=== PATIENT | female | born 1985 | race Two or more races ===

== ENCOUNTER 2024-10-04 22:41 | Emergency (ER) | payer MEDICAID, SELFPAY ==
[2024-10-04] VITALS (40 sets, daily range): BP systolic 108–125; BP diastolic 61–81; PULSE 89–111; RESP 18–98; TEMP 36.8; O2SAT 94–99; BMI 36.9; BMI 29.2
--- NOTE | 2024-10-04 20:17 | XR_ITS ---
Examination: Complete OB ultrasound greater than 14 weeks Date and time of exam: October 04, 2024 2058 hours INDICATIONS: Patient fell today with pelvic pain Findings: Viable intrauterine single fetus with single amniotic sac presentation cephalic Placenta posterior grade 2 no abruption eccentric umbilical cord insertion 3 vessel seen Amniotic fluid index adequate spine maternal left Cervix 3.4 cm Ovaries obscured by bowel gas. Composite estimated gestational age based on BPD, head circumference, abdominal circumference, femur length is 23 weeks 3 days Estimated weight 595 g. Survey of intracranial anatomy, spinal anatomy, abdominal anatomy, four-chamber heart performed with no abnormalities identified. Impression: Viable intrauterine gestation cephalic presentation Placenta posterior no abruption.
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
== END 2024-10-05 00:21 | disposition home or self-care (01) ==
PROVIDERS: Emergency Provider Emergency Medicine
DX: O9A.219 Injury, poisoning and certain other consequences of external causes complicating pregnancy, unspecified trimester (principal); S30.23XA Contusion of vagina and vulva, initial encounter; Y04.8XXA Assault by other bodily force, initial encounter; Z3A.23 23 weeks gestation of pregnancy
CPT/HCPCS: 76805; 99281